=== PATIENT | female | born 1985 | race Caucasian/White ===

== ENCOUNTER 2021-03-22 17:51 | Emergency (ER) | payer OTHER ==
[~2021-03-22] VITALS: Ht 157.5 cm; Wt 99.8 kg
[2021-03-22 17:55] VITALS: BP 138/82
[2021-03-22] MEDS ORDERED: LEXAPRO 10 MG T10 M2 PO (18:02)
[2021-03-22] MEDS ORDERED: IBUPROFEN 800800 M1 PO (18:23)
[2021-03-22] MEDS ORDERED: PENICILLIN V P500 MG PO (18:23)
[2021-03-22] MEDS ORDERED: NORCO5 PO ×2 (18:23→18:24)
== END 2021-03-22 18:30 | disposition home or self-care (01) ==
LOC: M.ERS 17:51
DX: K08.89 Other specified disorders of teeth and supporting structures (principal); Z79.899 Other long term (current) drug therapy